=== PATIENT | male | born 1950 | race Caucasian/White ===

== ENCOUNTER 2024-06-22 06:12 | Day surgery (SDC) | payer OTHER, SELFPAY ==
[2024-06-22 09:08] VITALS: BMI 43.0
[2024-06-22 09:13] VITALS: BMI 43.0
[2024-06-22 09:21] VITALS: BP 126/71
[2024-06-22 10:37] VITALS: BP 115/68
[2024-06-22 10:45] VITALS: BP 116/65
[2024-06-22 11:00] VITALS: BP 125/58
== END 2024-06-22 11:15 | disposition home or self-care (01) ==
LOC: GI 06:12
PROVIDERS: ATTENDING PHYSICIAN Internal Medicine
DX: Z12.11 Encounter for screening for malignant neoplasm of colon (principal); Z86.010 Personal history of colon polyps; K64.9 Unspecified hemorrhoids; K57.30 Diverticulosis of large intestine without perforation or abscess without bleeding; Z98.0 Intestinal bypass and anastomosis status; D12.2 Benign neoplasm of ascending colon; D12.3 Benign neoplasm of transverse colon; D12.5 Benign neoplasm of sigmoid colon
CPT/HCPCS: 45385; 45380; 88305

== ENCOUNTER → 2024-11-22 09:45 | Outpatient (REF) | payer OTHER, SELFPAY | LOC: RAD 09:45 | PROVIDERS: ATTENDING PHYSICIAN Specialist; FAMILY PHYSICIAN Internal Medicine | DX: R31.0 Gross hematuria (principal); N20.0 Calculus of kidney | CPT/HCPCS: 74178; Q9967 ==